=== PATIENT | female | born 1990 | race Caucasian/White ===

== ENCOUNTER → 2017-05-15 | Outpatient (CLI) | payer OTHER | LOC: BMCIMAGING 15:13 | PROVIDERS: ATTEND Podiatrist Foot & Ankle Surgery | DX: S82.54XD Nondisplaced fracture of medial malleolus of right tibia, subsequent encounter for closed fracture with routine healing (principal) ==

== ENCOUNTER → 2017-06-12 | Outpatient (CLI) | payer OTHER | LOC: BMCIMAGING 13:23 | PROVIDERS: ATTEND Orthopaedic Surgery Hand Surgery | DX: S82.54XD Nondisplaced fracture of medial malleolus of right tibia, subsequent encounter for closed fracture with routine healing (principal); M79.645 Pain in left finger(s) ==

== ENCOUNTER → 2017-06-26 | Outpatient (CLI) | payer OTHER | LOC: BMCIMAGING 08:53 | PROVIDERS: ATTEND Podiatrist Foot & Ankle Surgery | DX: S82.54XD Nondisplaced fracture of medial malleolus of right tibia, subsequent encounter for closed fracture with routine healing (principal) ==

== ENCOUNTER → 2017-07-17 | Outpatient (CLI) | payer OTHER | LOC: BMCIMAGING 16:25 | PROVIDERS: ATTEND Podiatrist Foot & Ankle Surgery | DX: S82.54XD Nondisplaced fracture of medial malleolus of right tibia, subsequent encounter for closed fracture with routine healing (principal) ==

== ENCOUNTER → 2017-08-23 | Outpatient (CLI) | payer OTHER | LOC: FIMAGING 08:25 | PROVIDERS: ATTEND Podiatrist Foot & Ankle Surgery | DX: S82.51XD Displaced fracture of medial malleolus of right tibia, subsequent encounter for closed fracture with routine healing (principal) ==

== ENCOUNTER → 2017-09-23 | Outpatient (CLI) | payer OTHER | LOC: BMCIMAGING 15:42 | PROVIDERS: ATTEND Podiatrist Foot & Ankle Surgery | DX: S82.51XD Displaced fracture of medial malleolus of right tibia, subsequent encounter for closed fracture with routine healing (principal) ==

== ENCOUNTER 2018-07-04 10:20 | Emergency (ER) | payer OTHER ==
--- NOTE | 2018-07-04 10:42 | EDPHY ---
H & P Stated Complaint: rlq abd/ r flank pain/ pain x 1 week Time Seen by Provider: 07/04/18 10:39 - Personal History LMP (Females 10-55): 15-21 Days Ago Current Tetanus Diphtheria and Acellular Pertussis (TDAP): Yes - Medical/Surgical History Hx Asthma: No Hx Chronic Respiratory Disease: No Hx Diabetes: No Hx Cardiac Disease: No Hx Renal Disease: No Hx Cirrhosis: No Hx Alcoholism: No Hx HIV/AIDS: No Hx Splenectomy or Spleen Trauma: No Other PMH: kidney stones/ ovarian cyst - Social History Smoking Status: Never smoked Constitutional: Initial Vital Signs Temperature (C) 37.1 C 07/04/18 10:30 Heart Rate 92 07/04/18 10:30 Respiratory Rate 18 07/04/18 10:30 Blood Pressure 132/91 H 07/04/18 10:30 O2 Sat (%) 100 07/04/18 10:30 O2 Delivery Mode Room Air Allergies/Adverse Reactions: No Known Allergies Allergy (Unverified 07/04/18 10:30) Home Medications: Medication Instructions Recorded Cephalexin [Keflex (RX)] 500 mg PO TID #30 cap 07/04/18 Medical Decision Making - Diagnostics Imaging Results: Imaging Impressions Pelvic/Renal Ultrasound 07/04/18 10:51 Impression: 1. Smoothly-contoured endometrial thickening, likely physiologic given the patient's stage in her menstrual cycle. 2. Bilateral complex cystic/solid partially-septated ovarian masses, measuring up to 4.2 cm in the right ovary and 2.1 cm in the left ovary. Differential considerations would include partially liquefying previously hemorrhagic ( "chocolate") cysts, or endometriomas; however adenomatous or carcinomatous etiologies cannot be excluded. The patient is relatively young, however it may still be worthwhile to check a serum CA-125 level, and obtain a gynecologic consultation. There is no evidence of torsion, although there is a small amount of free fluid in the pelvic cul-de-sac. Findings and recommendations were discussed with Piter Wiley MD at 12:04, on 07/04/2018. Imaging: Discussed imaging studies w/ call taker Radiologist, I viewed and interpreted images myself ED Course/Re-evaluation: CHIEF COMPLAINT: Lower abdominal pain HISTORY OF PRESENT ILLNESS: The patient is a 28 y/o female with a history of an ovarian cyst and kidney stone complaining of right lower abdominal pain that radiates to her back. Last week she felt bloated and then developed the pain. The bloating improved, but she is still having the abdominal pain. Her last menstrual cycle was 3 weeks ago. No fever, headache, body aches, lightheadedness, chest pain, heart palpitations, shortness of breath, cough, nausea or vomiting, urinary or bowel complaints, numbness, paresthesias. REVIEW OF SYSTEMS: A 10 point review of systems was performed and is negative with the exception of the elements mentioned in the history of present illness. PHYSICAL EXAM: HR, BP, O2 Sat, RR. Temp noted General Appearance: Alert, well hydrated, appropriate, and non-toxic appearing. Head: Atraumatic without scalp tenderness or obvious injury Eyes: Pupils equal, round, reactive to light and accommodation, EOMI, no trauma , no injection. Ears: Clear bilaterally, no perforation, normal landmarks Nose: Atraumatic, no rhinorrhea, clear. Throat: There is no erythema or exudates, no lesions, normal tonsils, mucus membranes moist. Neck: Supple, 2+ carotid upstroke, nontender, no lymphadenopathy. Respiratory: No retractions, no distress, no wheezes, and no accessory muscle use. Lungs are clear to auscultation bilaterally. Cardiovascular: Regular rate and rhythm, no murmurs, rubs, or gallops. Bilateral carotid, radial, dorsalis pedis, and posterior tibial pulses intact. Good capillary refill all extremities. Gastrointestinal: Mild right lower quadrant tenderness that is below McBurney' s point. Abdomen is soft, non-distended, no masses, no rebound, no guarding, no peritoneal signs. Musculoskeletal: Normal active ROM of all extremities, atraumatic. Neurological: Alert, appropriate, and interactive. The patient has normal DTRs and non-focal cranial nerves, motor, sensory, and cerebellar exam. Skin: No rashes, good turgor, no nodules on palpation. Past medical history: Kidney stone, ovarian cyst Past surgical history: Denies Family history: Denies Social history: Lives in [place], single, student at DIAGNOSTICS/PROCEDURES/CRITICAL CARE TIME: Pelvic US: 2 right ovarian cyst with questionable hemorrhagic cyst or endometriosis. No torsion. DIFFERENTIAL DIAGNOSIS: The differential diagnosis for the patient's abdominal pain included but was not limited to ovarian cyst, pelvic inflammatory disease, ovarian torsion, urinary tract infection, ectopic , cholecystitis, and appendicitis. MEDICAL DECISION MAKING: The patient is a 28 y/o female with a history of an ovarian cyst and kidney stone presenting with right lower abdominal pain that radiates to her back. Her last menstrual cycle was 3 weeks ago. On exam she has Mild right lower quadrant tenderness that is below McBurney's point. 1111: Patient's UA reveals a minor UTI, I will prescribe her Keflex. 1206: I spoke with Dr. Hart, radiologist, who reports that the patient has two right ovarian cysts with questionable hemorrhagic cyst. She is safe to be discharged home. 1210: Reassessed patient and discussed laboratory and imaging studies. I have advised her to follow up with an [employer] for a repeat US. Patient is comfortable with Keflex prescription. Return precautions provided; patient is comfortable with this plan. - Data Points Laboratory Results: 07/04/18 07/04/18 10:45 10:45 Urine Color YELLOW Urine Appearance HAZY Urine pH 6.0 (5.0-7.5) Ur Specific [place] 1.020 (1.002-1.030) Urine Protein NEGATIVE (NEGATIVE) Urine Ketones NEGATIVE (NEGATIVE) Urine Blood NEGATIVE (NEGATIVE) Urine Nitrate NEGATIVE (NEGATIVE) Urine Bilirubin NEGATIVE (NEGATIVE) Urine Urobilinogen NEGATIVE EU EU (0.2-1.0) Ur Leukocyte Esterase 2+ H (NEGATIVE) Urine RBC 1-3 /hpf /hpf (0-3) Urine WBC 3-5 /hpf H /hpf (0-3) Ur Epithelial Cells TRACE /lpf /lpf (NONE-1+) Urine Bacteria TRACE /hpf H /hpf (NONE SEEN) Urine Mucus TRACE /lpf /lpf (NONE-1+) Urine Glucose NEGATIVE (NEGATIVE) Urine Test NEGATIVE Departure - Departure Disposition: Home, Routine, Self-Care Clinical Impression: Urinary tract infection Qualifiers: Urinary tract infection type: acute cystitis Hematuria presence: without hematuria Qualified Code(s): N30.00 - Acute cystitis without hematuria Ovarian cyst Qualifiers: Laterality: right Qualified Code(s): N83.201 - Unspecified ovarian cyst, right side Condition: Good Instructions: Urinary Tract Infection in Women (ED) Additional Instructions: 1. Take Keflex as prescribed. 2. Follow up with an [employer] to have a repeat ultrasound. 3. Return to the Emergency Department for fever, worsening pain, flank pain or failure to improve within 72 hours. Referrals: Keisha Betancourt MD [Primary Care Provider] - As per Instructions Jorge Luis Crenshaw MD [Medical Doctor] - As per Instructions Leticia Eubanks DO [Doctor of Osteopathy] - As per Instructions Prescriptions: Cephalexin [Keflex (RX)] 500 mg PO TID #30 cap Report Scribed for: Piter Wiley Report Scribed by: Fifi Espino Date of Report: 07/04/18 Time of Report: 12:11
[2018-07-04] MEDS ORDERED: CEPHALEXIN 500 MG CAP PO ONE (12:06)
[2018-07-04 12:21] VITALS: BP 126/87
== END 2018-07-04 12:22 | disposition home or self-care (01) ==
DX: N30.00 Acute cystitis without hematuria (principal); N83.201 Unspecified ovarian cyst, right side

== ENCOUNTER → 2018-08-19 | Outpatient (CLI) | payer OTHER | LOC: FIMAGING 09:22 ==